=== PATIENT | female | born 1965 | race American Indian/Alaskan Native ===

== ENCOUNTER 2020-10-08 13:23 | Emergency (ER) | payer MEDICAID ==
--- NOTE | 2020-10-08 14:18 | Emergency Department Report ---
Blank Doc - Documentation Documentation: 55-year-old female that presents with chest pain and SOB. This initial assessment/diagnostic orders/clinical plan/treatment(s) is/are subject to change based on patient's health status, clinical progression and re- assessment by fellow clinical providers in the ED. Further treatment and workup at subsequent clinical providers discretion. Patient/guardians urged not to elope from the ED as their condition may be serious if not clinically assessed and managed. Initial orders include: 1- Patient sent to MAIN ED for further evaluation and treatment 2- cardaic workup
[2020-10-08 14:52] LABS: Basophils % (Auto) 0.7 % (0.0-1.8); Eosinophils # (Auto) 0.2 K/mm3 (0.0-0.4); Eosinophils % (Auto) 2.9 % (0.0-4.3); Hematocrit 46.4 % (30.3-42.9); Hemoglobin 15.3 gm/dl (10.1-14.3); Lymphocytes # (Auto) 1.5 K/mm3 (1.2-5.4); Lymphocytes % (Auto) 25.8 % (13.4-35.0); Mean Corpuscular HGB Conc 33 % (30-34); Mean Corpuscular Volume 87 fl (79-97); Monocytes # (Auto) 0.6 K/mm3 (0.0-0.8); Monocytes % (Auto) 9.4 % (0.0-7.3); Platelet Count 238 K/mm3 (140-440); Red Blood Count 5.36 M/mm3 (3.65-5.03); Red Cell Distribution Width 15.1 % (13.2-15.2)
[2020-10-08 15:00] LABS: INR 0.91 (0.87-1.13)
[2020-10-08 15:01] LABS: Partial Thromboplastin Time 22.1 Sec. (24.2-36.6)
[2020-10-08 15:20] LABS: Alanine Aminotransferase 24 units/L (7-56); Albumin 4.3 g/dL (3.9-5); BUN/Creatinine Ratio 19; Blood Urea Nitrogen 25 mg/dL (7-17); Calcium 10.1 mg/dL (8.4-10.2); Hemolysis Index 15
--- NOTE | 2020-10-08 15:53 | XRay Report ---
XR chest routine 2V INDICATION / CLINICAL INFORMATION: Chest Pain. COMPARISON: None FINDINGS: Heart size and pulmonary vasculature are within normal limits. Mild hazy predominantly interstitial o pacities throughout the right lung, most pronounced within the right upper lung. No focal airspace co nsolidation. No pleural effusion or pneumothorax. No acute osseous findings. IMPRESSION: Hazy interstitial opacities throughout the right lung, most pronounced in the right lung apex. Findin gs may reflect chronic interstitial lung changes or interstitial infiltrate. Signer Name: Ilia Fernandez MD Signed: 10/08/2020 3:49 PM Workstation Name: [id number]
[2020-10-08] MEDS ORDERED: cefTRIAXone/NS 1 GM/50 ML 1 GM/50 ML BAG IV ONE (22:53)
[2020-10-08] MEDS ORDERED: MORPHINE 4 MG/1 ML INJ IV ONE (22:53)
[2020-10-08] MEDS ORDERED: SODIUM CHLORIDE 0.9% 500 ML 500 ML IV ONE (22:53)
[2020-10-08] MEDS ORDERED: AZITHROMYCIN 500 MG in SODIUM CHLORIDE 0.9% 250ML 250 ML IV ONE (22:54)
--- NOTE | 2020-10-08 22:57 | Emergency Department Report ---
ED Chest Pain HPI - General Chief Complaint: Chest Pain Stated Complaint: CHEST PAIN/OUT OF MEDS Time Seen by Provider: 10/08/20 14:17 Source: patient, EMS Mode of arrival: Wheelchair Limitations: Physical Limitation - History of Present Illness Initial Comments: This is a 55-year-old female who presents to the emergency department with complaint of a midsternal chest pain burning sensation that has been going on intermittently since yesterday afternoon. She has not taken anything for symptoms prior to presentation. It is associated with some mild shortness of breath, but she denies any nausea, vomiting, diaphoresis, edema. The patient also says that she has been out of all of her medications over the past month and has been having some elevated blood sugar levels. However the patient also admits that she was recently admitted to [facility] 2 weeks ago for "my chest." She also says that she was positive for COVID-19 2 to 3 weeks ago. One of the medications with the patient says that she is currently out of is "my blood thinner", but the patient is unable to tell me the reason why she is on blood thinners or which blood thinner she takes. The patient also is on Seroquel and trazodone for "sleep", but has a history of depression. For her diabetes the patient says that she takes Humalog 43 units with meals, and Levemi r 70 units twice daily. Patient has a history of COPD for which she uses 2 L of oxygen via nasal cannula. Patient has a primary care physician through [employer], but "I have not been able to see them since the pandemic." - Related Data Previous Rx's Medication Instructions Recorded Last Taken Type Insulin Detemir [Levemir] 20 unit SQ QHS #1 vial 10/09/20 Unknown Rx Lispro Insulin [HumaLOG] 40 unit SQ QAC #1 vial 10/09/20 Unknown Rx QUEtiapine [SEROquel] 200 mg PO QHS #15 tablet 10/09/20 Unknown Rx lisinopriL [Zestril TAB] 20 mg PO QDAY #20 tablet 10/09/20 Unknown Rx Allergies Allergy/AdvReac Type Severity Reaction Status Date / Time No Known Allergies Allergy Verified 10/08/20 22:54 Heart Score - HEART Score History: Slightly suspicious EKG: Normal Age: 45-65 Risk factors: 1-2 risk factors Troponin: < normal limit HEART Score: 2 - Critical Actions Critical Actions: 0-3 pts:0.9-1.7%risk of adverse cardiac event.Candidate for discharge ED Review of Systems ROS: Stated complaint: CHEST PAIN/OUT OF MEDS Other details as noted in HPI Comment: All other systems reviewed and negative Constitutional: denies: chills, fever Eyes: denies: eye pain, vision change ENT: denies: ear pain, throat pain Respiratory: shortness of breath. denies: cough Cardiovascular: chest pain. denies: palpitations Gastrointestinal: denies: abdominal pain, vomiting Genitourinary: denies: dysuria, discharge Musculoskeletal: denies: back pain, arthralgia Skin: denies: rash, lesions Neurological: denies: headache, weakness ED Past Medical Hx - Past Medical History Previous Medical History?: No Hx Hypertension: Yes Hx Diabetes: Yes Additional medical history: major depression - Surgical History Past Surgical History?: Yes Additional Surgical History: hernia - Social History Smoking Status: Never Smoker Substance Use Type: None - Medications Home Medications: Home Medications Medication Instructions Recorded Confirmed Last Taken Type Insulin Detemir [Levemir] 20 unit SQ QHS #1 vial 10/09/20 Unknown Rx Lispro Insulin [HumaLOG] 40 unit SQ QAC #1 vial 10/09/20 Unknown Rx QUEtiapine [SEROquel] 200 mg PO QHS #15 tablet 10/09/20 Unknown Rx lisinopriL [Zestril TAB] 20 mg PO QDAY #20 tablet 10/09/20 Unknown Rx ED Physical Exam - General Limitations: Physical Limitation - Other Other exam information: GENERAL: The patient is well-developed well-nourished. HENT: Normocephalic. Atraumatic. Patient has moist mucous membranes. EYES: Extraocular motions are intact. NECK: Supple. Trachea is midline. CHEST/LUNGS: Clear to auscultation. Mild tachypnea but no accessory muscle use. There is no respiratory distress noted. HEART/CARDIOVASCULAR: Regular. There is no tachycardia. There is no murmur. ABDOMEN: Abdomen is soft, nontender. Patient has normal bowel sounds. SKIN: Skin is warm and dry. NEURO: The patient is awake, alert, and oriented. The patient is cooperative. The patient has no focal neurologic deficits. Normal speech. MUSCULOSKELETAL: There is no tenderness or deformity. There is no limitation r jennifer of motion. ED Course Vital Signs 10/08/20 10/08/20 10/08/20 13:51 22:06 23:00 Temperature 98.3 F 98.0 F Pulse Rate 98 H 101 H Respiratory 18 17 Rate Blood Pressure 133/93 154/92 O2 Sat by Pulse 99 93 99 Oximetry 10/08/20 10/08/20 10/08/20 23:15 23:30 23:45 Temperature Pulse Rate 89 92 H 102 H Respiratory 19 19 22 Rate Blood Pressure 168/100 155/86 155/101 O2 Sat by Pulse 99 96 98 Oximetry 10/09/20 10/09/20 10/09/20 00:00 00:15 00:30 Temperature Pulse Rate 95 H 92 H 93 H Respiratory 19 17 21 Rate Blood Pressure 161/95 172/101 160/96 O2 Sat by Pulse 96 99 97 Oximetry 10/09/20 10/09/20 10/09/20 00:45 01:00 01:15 Temperature Pulse Rate 92 H 95 H 99 H Respiratory 17 18 17 Rate Blood Pressure 163/100 183/108 149/95 O2 Sat by Pulse 98 93 97 Oximetry 10/09/20 10/09/20 10/09/20 01:30 02:02 02:15 Temperature Pulse Rate 94 H 92 H 88 Respiratory 15 15 7 L Rate Blood Pressure 161/89 161/89 137/73 O2 Sat by Pulse 97 98 Oximetry 10/09/20 02:30 Temperature Pulse Rate 94 H Respiratory 9 L Rate Blood Pressure 141/71 O2 Sat by Pulse 99 Oximetry - Reevaluation(s) Reevaluation #1: 10/09/20 04:40 Lab Results 10/08/20 10/08/20 10/08/20 Range/Units 14:35 14:35 14:35 WBC 6.0 (4.5-11.0) K/mm3 RBC 5.36 H (3.65-5.03) M/mm3 Hgb 15.3 H (10.1-14.3) gm/dl Hct 46.4 H (30.3-42.9) % MCV 87 (79-97) fl MCH 29 (28-32) pg MCHC 33 (30-34) % RDW 15.1 (13.2-15.2) % Plt Count 238 (140-440) K/mm3 Lymph % (Auto) 25.8 (13.4-35.0) % [place] % (Auto) 9.4 H (0.0-7.3) % Eos % (Auto) 2.9 (0.0-4.3) % Baso % (Auto) 0.7 (0.0-1.8) % Lymph # (Auto) 1.5 (1.2-5.4) K/mm3 [place] # (Auto) 0.6 (0.0-0.8) K/mm3 Eos # (Auto) 0.2 (0.0-0.4) K/mm3 Baso # (Auto) 0.0 (0.0-0.1) K/mm3 Seg Neutrophils % 61.2 (40.0-70.0) % Seg Neutrophils # 3.7 (1.8-7.7) K/mm3 PT 12.4 (12.2-14.9) Sec. INR 0.91 (0.87-1.13) APTT 22.1 L (24.2-36.6) Sec. D-Dimer (0-234) ng/mlDDU Sodium 135 L (137-145) mmol/L Potassium 4.9 (3.6-5.0) mmol/L Chloride 93.6 L (98-107) mmol/L Carbon Dioxide 31 H (22-30) mmol/L Anion Gap 15 mmol/L BUN 25 H (7-17) mg/dL Creatinine 1.3 H (0.6-1.2) mg/dL Estimated GFR 42 ml/min BUN/Creatinine Ratio 19 % Glucose 386 H (65-100) mg/dL POC Glucose (70-105) mg/dL Calcium 10.1 (8.4-10.2) mg/dL Total Bilirubin 0.30 (0.1-1.2) mg/dL AST 17 (5-40) units/L ALT 24 (7-56) units/L Alkaline Phosphatase 91 (35-129) units/L Troponin T < 0.010 (0.00-0.029) ng/mL NT-Pro-B Natriuret Pep 9.54 (0-900) pg/mL Total Protein 7.1 (6.3-8.2) g/dL Albumin 4.3 (3.9-5) g/dL Albumin/Globulin Ratio 1.5 % 10/08/20 10/08/20 10/08/20 Range/Units 17:20 22:22 23:00 WBC (4.5-11.0) K/mm3 RBC (3.65-5.03) M/mm3 Hgb (10.1-14.3) gm/dl Hct (30.3-42.9) % MCV (79-97) fl MCH (28-32) pg MCHC (30-34) % RDW (13.2-15.2) % Plt Count (140-440) K/mm3 Lymph % (Auto) (13.4-35.0) % [place] % (Auto) (0.0-7.3) % Eos % (Auto) (0.0-4.3) % Baso % (Auto) (0.0-1.8) % Lymph # (Auto) (1.2-5.4) K/mm3 [place] # (Auto) (0.0-0.8) K/mm3 Eos # (Auto) (0.0-0.4) K/mm3 Baso # (Auto) (0.0-0.1) K/mm3 Seg Neutrophils % (40.0-70.0) % Seg Neutrophils # (1.8-7.7) K/mm3 PT (12.2-14.9) Sec. INR (0.87-1.13) APTT (24.2-36.6) Sec. D-Dimer (0-234) ng/mlDDU Sodium (137-145) mmol/L Potassium (3.6-5.0) mmol/L Chloride (98-107) mmol/L Carbon Dioxide (22-30) mmol/L Anion Gap mmol/L BUN (7-17) mg/dL Creatinine (0.6-1.2) mg/dL Estimated GFR ml/min BUN/Creatinine Ratio % Glucose (65-100) mg/dL POC Glucose 301 H (70-105) mg/dL Calcium (8.4-10.2) mg/dL Total Bilirubin (0.1-1.2) mg/dL AST (5-40) units/L ALT (7-56) units/L Alkaline Phosphatase (35-129) units/L Troponin T < 0.010 < 0.010 (0.00-0.029) ng/mL NT-Pro-B Natriuret Pep (0-900) pg/mL Total Protein (6.3-8.2) g/dL Albumin (3.9-5) g/dL Albumin/Globulin Ratio % 10/08/20 10/09/20 Range/Units 23:00 01:31 WBC (4.5-11.0) K/mm3 RBC (3.65-5.03) M/mm3 Hgb (10.1-14.3) gm/dl Hct (30.3-42.9) % MCV (79-97) fl MCH (28-32) pg MCHC (30-34) % RDW (13.2-15.2) % Plt Count (140-440) K/mm3 Lymph % (Auto) (13.4-35.0) % [place] % (Auto) (0.0-7.3) % Eos % (Auto) (0.0-4.3) % Baso % (Auto) (0.0-1.8) % Lymph # (Auto) (1.2-5.4) K/mm3 [place] # (Auto) (0.0-0.8) K/mm3 Eos # (Auto) (0.0-0.4) K/mm3 Baso # (Auto) (0.0-0.1) K/mm3 Seg Neutrophils % (40.0-70.0) % Seg Neutrophils # (1.8-7.7) K/mm3 PT (12.2-14.9) Sec. INR (0.87-1.13) APTT (24.2-36.6) Sec. D-Dimer 523.45 H (0-234) ng/mlDDU Sodium (137-145) mmol/L Potassium (3.6-5.0) mmol/L Chloride (98-107) mmol/L Carbon Dioxide (22-30) mmol/L Anion Gap mmol/L BUN (7-17) mg/dL Creatinine (0.6-1.2) mg/dL Estimated GFR ml/min BUN/Creatinine Ratio % Glucose (65-100) mg/dL POC Glucose 283 H (70-105) mg/dL Calcium (8.4-10.2) mg/dL Total Bilirubin (0.1-1.2) mg/dL AST (5-40) units/L ALT (7-56) units/L Alkaline Phosphatase (35-129) units/L Troponin T (0.00-0.029) ng/mL NT-Pro-B Natriuret Pep (0-900) pg/mL Total Protein (6.3-8.2) g/dL Albumin (3.9-5) g/dL Albumin/Globulin Ratio % DOMENICO score - Domenico Score Age > 65: (0) No Aspirin use within the Past 7 Days: (0) No 3 or more CAD Risk Factors: (0) No 2 or more Angina events in past 24 hrs: (1) Yes Known CAD with more than 50% Stenosis: (0) No Elevated Cardiac Markers: (0) No ST Deviation Greater than 0.5mm: (0) No DOMENICO Score: 1 ED Medical Decision Making - Lab Data Result diagrams: 10/08/20 14:35 10/08/20 14:35 - EKG Data -: EKG Interpreted by Me EKG shows normal: sinus rhythm, axis, intervals, QRS complexes, ST-T waves Rate: normal - EKG Data When compared to previous EKG there are: previous EKG unavailable Interpretation: normal EKG - Radiology Data Radiology results: report reviewed, image reviewed interpreted by me: Chest x-ray does not show any acute process. There are no pleural effusions, obvious pneumonia and there is no pneumothorax. No significant cardiomegaly. NUCLEAR MEDICINE PERFUSION LUNG SCAN INDICATION / CLINICAL INFORMATION: CP, elevated dimer. TECHNIQUE: 5.4 mCi of Tc-99m MAA were given by IV. COMPARISON: Chest radiograph dated 06/07/2020. FINDINGS: PERFUSION: No significant perfusion defects. ADDITIONAL FINDINGS: None. IMPRESSION: 1. Very low probability for pulmonary embolism. - Medical Decision Making This patient presents to the emergency department with a complaint of some midsternal chest burning and mild shortness of breath that has been going on since yesterday. On examination the patient does not have any signs of any respiratory or acute distress. EKG did not show any morphology consistent with ST elevation myocardial infarction or dysrhythmia. Chest x-ray did not show any pneumonia, pleural effusions, pneumothorax, focal consolidation, or any acute process. Patient's labs showed hyperglycemia with a blood sugar of about 380 but no signs of diabetic ketoacidosis as there was no elevated anion gap. She has some mild renal insufficiency but no hyperkalemia. She had an elevated and equivocal D-dimer level. For this reason the patient had a ventilation/perfusion scan that was very low probability for a pulmonary embolism. The rest of the labs were unremarkable including CBC and negative troponins x3. Patient was given a dose of IV analgesia and a GI cocktail and upon reevaluation she is feeling greatly improved. Patient is low on the heart and DOMENICO score. For all these reasons the patient appears safe for discharge home at this time. Her contact information has been sent over to the [facility] vascular cinebar, and someone from their office should be contacting her shortly for close outpatient follow-up as per our [facility] low risk chest pain protocol. The patient was given a refill of some of her medications including her lisinopril, Seroquel, and insulin. After consultation with the hospitalist, I did alter some of the patient's dosages as the dosages of the Seroquel and the Levemir seemed too high to be accurate. The patient has been given outpatient referrals for primary care for outpatient follow-up and medication reconciliation. She has been instructed to return to the emergency department with any worsening of her symptoms or with any acute distress. Critical Care Time: No Critical care attestation.: If time is entered above; I have spent that time in minutes in the direct care of this critically ill patient, excluding procedure time. ED Disposition Clinical Impression: Hyperglycemia due to type 1 diabetes mellitus, Renal insufficiency Chest pain Qualifiers: Chest pain type: unspecified Qualified Code(s): R07.9 - Chest pain, unspecified Hypertension Qualifiers: Hypertension type: essential hypertension Qualified Code(s): I10 - Essential (primary) hypertension Disposition: DC-01 TO HOME OR SELFCARE Is pt being admited?: No Condition: Stable Instructions: Insulin Treatment for Diabetes Mellitus, Nonspecific Chest Pain, Adult, Hyperglycemia, Blood Glucose Monitoring, Adult, Hypertension, Adult, Chest Pain (ED), Diabetes Mellitus Type 2 in Adults (ED), Hypertension (ED) Additional Instructions: Please follow-up with a primary care physician in the next few days. I am sending your contact information to the [facility] vascular [facility]ine[facility], and someone from their office should be contacting you shortly for close outpatient follow-up. I will also give you a referral for one of their street worker, Dr. Glass, in case you would like to make the appointment yourself. Try to stay away from foods that are high in sugar, carbohydrates and starches. Keep a blood sugar log. Return to the emergency department with any worsening of your symptoms, new or concerning symptoms not addressed during this current emergency department visit, or with any acute distress. Prescriptions: Insulin Detemir [Levemir] 20 unit SQ QHS #1 vial QUEtiapine [SEROquel] 200 mg PO QHS #15 tablet Lispro Insulin [HumaLOG] 40 unit SQ QAC #1 vial lisinopriL [Zestril TAB] 20 mg PO QDAY #20 tablet Referrals: PRIMARY CAREMD [Primary Care Provider] - 2-3 Days GENET GLASS MD [Staff Physician] - 2-3 Days Time of Disposition: 02:50
[2020-10-08] MEDS ORDERED: INSULIN REGULAR, HUMAN 100 UNIT/ML 3ML VIAL IV SCH ×2 (23:00→23:45)
[2020-10-08] MEDS ORDERED: INSULIN REGULAR, HUMAN 100 UNITS/1 ML ONE (23:30)
[2020-10-08] MEDS ORDERED: LIDOCAINE VISCOUS 2% 15 ML ORAL LIQD PO ONE (23:55)
[2020-10-08] MEDS ORDERED: ALUM-MAG HYDROXIDE-SIMETHICONE 200-200-20MG/5ML ORAL LIQD 30 ML PO ONE (23:56)
--- NOTE | 2020-10-09 02:27 | Nuclear Medicine Report ---
NUCLEAR MEDICINE PERFUSION LUNG SCAN INDICATION / CLINICAL INFORMATION: CP, elevated dimer. TECHNIQUE: 5.4 mCi of Tc-99m MAA were given by IV. COMPARISON: Chest radiograph dated 06/07/2020. FINDINGS: PERFUSION: No significant perfusion defects. ADDITIONAL FINDINGS: None. IMPRESSION: 1. Very low probability for pulmonary embolism. Signer Name: Patti Harrison MD Signed: 10/09/2020 2:23 AM Workstation Name: [id number]
[2020-10-09 02:37] VITALS: BP 141/71
== END 2020-10-09 04:50 | disposition home or self-care (01) ==
LOC: ED 13:23
DX: E11.65 Type 2 diabetes mellitus with hyperglycemia (principal); N28.9 Disorder of kidney and ureter, unspecified; I10 Essential (primary) hypertension; R07.89 Other chest pain; E11.9 Type 2 diabetes mellitus without complications; Z98.890 Other specified postprocedural states; Z79.4 Long term (current) use of insulin; Z79.899 Other long term (current) drug therapy
CPT/HCPCS: 36415; 71046; 78580; 80053; 82962; 83880; 84484; 85025; 85379; 85610; 85730; 93005; 96365; 96367; 96375; 99285; A9540; J0456; J0696; J2270; J7040; J7050; J1815